=== PATIENT | male | born 1960 | race African-American/Black ===

== ENCOUNTER → 2019-06-02 | Outpatient (CLI) | payer OTHER ==
--- NOTE | 2019-06-02 11:50 | PCVCIMAG ---
APPROVED REPORT Imaging Protocol: Rest Tc-99m/Stress Tc-99m 1 day Study performed: 06/02/2019 09:45:53 Indication: Abnormal EKG, CAD Patient Location: Out-Patient Stress Nurse: Mary Chou RN [place] Tech:Corinna KatzTRUONGMT Ht: 6 ft 2 in Wt: 255 lbs BSA: 2.41 m2 HR: 60 bpm BP: 133/81 mmHg BMI: 32.73 Rhythm: Sinus Rhythm Medical History Medical History: HTN, Hyperlipidemia, [place] Medications: Aspirin, Lisinopril, Plavix, Atorvastatin Allergies: Effient Cardiac Risk Factors: Age Previous Cardiac Procedures: PCI Pretest Chest Pain Characteristics: No chest pain Exercise History: Physically active Resting Data Rest SPECT myocardial perfusion imaging was performed in supine position 45 minutes following the intravenous injection of 10.1 mCi of Tc-99m Sestamibi. Time of rest injection: 0850 Date: 06/02/2019 Administration Route: IV Administration Site: Right AC Exercise Stress At peak stress, the patient was injected intravenously with 31.4mCi of Tc-99m Sestamibi. Time of stress injection: 1030 Date: 06/02/2019 Administration Route: IV Administration Site: Right AC Patient continued to exercise for 1 minute(s). Gated Stress SPECT was performed 30 minutes after stress injection. The images were gated to evaluate regional wall motion and calculate left ventricular ejection fraction. Stress Test Details Stress Test: Exercise stress testing was performed using a [place]acio protocol. HRMax Heart Rate (APMHR): 159 bpm Resting HR: 60 bpmTarget HR (85% APMHR): 135 bpm Max HR Achieved: 151 bpm % of APMHR: 94 Recovery HR: 85 bpm BP Resting BP: 133/81 mmHg Max BP: 148/68 mmHg Recovery BP: 130/63 mmHg ECG Resting ECG: Sinus Rhythm Stress ECG: Sinus Tachycardia, nonspecific ST-T abnormalities ST Change: Non-ischemic Arrhythmia: PVC's Recovery ECG: Sinus Rhythm Clinical Reason for Termination: Maximal effort Stress Symptoms: Dyspnea Exercise duration: 12 min 00 sec Exercise capacity: 13.7 METs Symptoms resolved during recovery. Study Quality Study: Good Study Data Post stress, the left ventricular ejection was 70%.. SSS: 0 SRS: 2 SDS: 0 TID = 0.95. Perfusion Normal left ventricular perfusion. Normal perfusion on both the stress and rest images. Wall Motion Normal left ventricular wall motion. Nuclear Conclusion ECG Findings: negative for ischemia Clinical Findings: negative for ischemia Nuclear Findings: negative for ischemia Exercise Capacity: normal Left Ventricular Function: normal Risk Study: low This study is of low probability for inducible ischemia or prior infarct. Normal global and segmental LV systolic function.
== END | disposition home or self-care (01) ==
LOC: PCVCIMAG 08:16
PROVIDERS: ATTEND Internal Medicine Cardiovascular Disease
DX: I25.10 Atherosclerotic heart disease of native coronary artery without angina pectoris (principal); I11.9 Hypertensive heart disease without heart failure; E78.5 Hyperlipidemia, unspecified; E78.00 Pure hypercholesterolemia, unspecified; M10.9 Gout, unspecified; Z88.8 Allergy status to other drugs, medicaments and biological substances; Z79.82 Long term (current) use of aspirin; Z82.49 Family history of ischemic heart disease and other diseases of the circulatory system
CPT/HCPCS: 78452; 93017; A9500